=== PATIENT | male | born 1990 | race Two or more races ===

== ENCOUNTER 2017-12-23 16:00 | Inpatient (IN) | payer BC ==
[~2017-12-23] VITALS: Ht 160 cm; Wt 81.6 kg
[2017-12-23] MEDS ORDERED: MORPHINE SULFATE 4 MG/ML VIAL. IV ONE (16:30)
[2017-12-23 16:39] LABS: BASO % 0 % (0-3); EOS % 1 % (0-3); HEMOGLOBIN 15.9 g/dL (13.0-17.5); LYMPH # 2.5 x10^3/uL (1.0-4.8); LYMPH % 39 % (24-48); MEAN CORPUSCULAR HEMOGLOBIN 30 pg (25-35); MEAN CORPUSCULAR HGB CONC 35 g/dL (31-37); MEAN CORPUSCULAR VOLUME 85 fL (79-100); MONO # 0.4 x10^3/uL (0.0-1.1); MONO % 7 % (0-9); NEUT # 3.4 x10^3uL (1.8-7.7); NEUT % 53 % (31-73); PLATELET COUNT 252 x10^3/uL (140-400); RED BLOOD COUNT 5.26 x10^6/uL (4.30-5.70); RED CELL DISTRIBUTION WIDTH 12.1 % (11.5-14.5); WHITE BLOOD COUNT 6.3 x10^3/uL (4.0-11.0)
[2017-12-23 16:53] LABS: CALCIUM 9.3 mg/dL (8.5-10.1); CREATININE 0.9 mg/dL (0.7-1.3); GFR 99.8
[2017-12-23 16:59] LABS: ALBUMIN 4.5 g/dL (3.4-5.0); ALBUMIN/GLOBULIN RATIO 1.5 (1.0-1.7); TOTAL BILIRUBIN 0.9 mg/dL (0.2-1.0); TOTAL PROTEIN 7.6 g/dL (6.4-8.2)
[2017-12-23] MEDS ORDERED: CONTRAST GIVEN. MC PRN (17:30)
[2017-12-23] MEDS ORDERED: IV NORMAL SALINE 1000ML BAG 1,000 ML IV ONE (17:30)
[2017-12-23 17:40] VITALS: BP 119/71
[2017-12-23] MEDS ORDERED: IOHEXOL 240 MG/ML 50ML VIAL. PO ONE (18:00)
[2017-12-23] MEDS ORDERED: IOHEXOL 300 MG/ML 100ML VIAL. IV ONE (18:00)
[2017-12-23 18:19] LABS: BILIRUBIN,URINE NEGATIVE (NEG); CLARITY,URINE CLEAR; COLOR,URINE YELLOW; NITRITE,URINE NEGATIVE (NEG); PH,URINE 6.5; PROTEIN,URINE NEGATIVE (NEG-TRACE); UROBILINOGEN,URINE 0.2 mg/dL (0.2 mg/dL)
--- NOTE | 2017-12-23 18:29 | RAD ---
PQRS Compliance statement: One or more of the following individualized dose reduction techniques were utilized for this examination: 1. Automated exposure control. 2. Adjustment of the mA and/or kV according to patient size. 3. Use of iterative reconstruction technique. Indication:RLQ PAIN TECHNIQUE: CT abdomen and pelvis with IV contrast with multiplanar reformats. COMPARISON: None FINDINGS: Heart is normal in size. No pericardial or pleural effusion. Clear lung bases. Liver, spleen, gallbladder, pancreas, adrenals and kidneys are within normal limits. No enlarged retroperitoneal or pelvic adenopathy. No free pelvic fluid or ascites. Appendix is mildly dilated measuring 8 mm without significant periappendiceal inflammatory changes. No bowel obstruction. No pneumoperitoneum. Urinary bladder within normal limits. The prostate and seminal vesicles show no large mass. 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 No suspicious bony lesion. IMPRESSION: Mildly dilated appendix without significant periappendiceal inflammatory changes. Findings are nonspecific. Clinically correlate for signs and symptoms of appendicitis. Electronically signed by: Fernando Copeland DO (12/23/2017 6:25 PM) [facility]
[2017-12-23 18:30] LABS: BACTERIA,URINE 0 /HPF (0-FEW); WBC,URINE 0 /HPF (0-4)
[2017-12-23] MEDS ORDERED: ONDANSETRON PF 4 MG/2 ML VIAL. IV PRN (19:00)
[2017-12-23] MEDS ORDERED: fentaNYL PF VIAL 100 MCG/2 ML VIAL IV PRN (19:00)
[2017-12-23] MEDS: IV NORMAL SALINE 1000ML BAG 1,000 ML IV SCH (21:13)
--- NOTE | 2017-12-23 22:24 | PHYS DOC ---
Past Medical History Past Medical History: No Pertinent History Past Surgical History: No Surgical History Alcohol Use: None Drug Use: None Adult General Chief Complaint Chief Complaint: ABDOMINAL PAIN HPI HPI Patient is a 27 year old male who presents with right lower quadrant abdominal pain. The patient states that he was seen at an urgent care approximately one week ago for similar symptoms. He was diagnosed with constipation but told follow-up in emergency department if his symptoms did not improve. The patient states that this pain has now localized to his right lower quadrant. He denies vomiting or diarrhea. He states that he's been having normal bowel movements. He states that he has also had intermittent fevers at home. Review of Systems Review of Systems Constitutional: Denies fever or chills [] Respiratory: Denies cough or shortness of breath [] Cardiovascular: No additional information not addressed in HPI [] GI: See history of present illness : Denies dysuria or hematuria [] Musculoskeletal: Denies back pain or joint pain [] Integument: Denies rash or skin lesions [] Neurologic: Denies headache, focal weakness or sensory changes [] Endocrine: Denies polyuria or polydipsia [] All other systems were reviewed and found to be within normal limits, except as documented in this note. Current Medications Current Medications Current Medications Medications (Trade) Dose Ordered Sig/Prema Start Time Stop Time Status Last Admin Dose Admin Info (CONTRAST GIVEN -- Rx MONITORING) 1 each PRN DAILY PRN 12/23/17 17:30 12/25/17 17:29 Iohexol (Omnipaque 240 Mg/ml) 50 ml 1X ONCE 12/23/17 18:00 12/23/17 18:01 DC Iohexol (Omnipaque 300 Mg/ml) 75 ml 1X ONCE 12/23/17 18:00 12/23/17 18:01 DC 12/23/17 18:27 75 ML Morphine Sulfate (Morphine Sulfate) 4 mg 1X ONCE 12/23/17 16:30 12/23/17 16:32 DC 12/23/17 17:43 4 MG Sodium Chloride 1,000 ml @ 1,000 mls/hr 1X ONCE 12/23/17 17:30 12/23/17 18:29 DC 12/23/17 17:43 1,000 MLS/HR Allergies Allergies Allergies Coded Allergies Type Severity Reaction Last Updated Verified No Known Drug Allergies 9/9/18 No Physical Exam Physical Exam Constitutional: Well developed, well nourished, no acute distress, non-toxic appearance. [] Neck: Normal range of motion, no tenderness, supple, no stridor. [] Cardiovascular:Heart rate regular rhythm, no murmur [] Lungs & Thorax: Bilateral breath sounds clear to auscultation [] Abdomen: Bowel sounds normal, firm, RLQ tenderness with guarding noted, heel jar is positive, psoas sign is positive, no masses, no pulsatile masses. [] Skin: Warm, dry, no erythema, no rash. [] Neurologic: Alert and oriented X 3, normal motor function, normal sensory function, no focal deficits noted. [] Psychologic: Affect normal, judgement normal, mood normal. [] Current Patient Data Vital Signs Vital Signs Date Time Temp Pulse Resp B/P (MAP) Pulse Ox O2 Delivery O2 Flow Rate FiO2 12/23/17 17:43 18 12/23/17 17:40 98.4 56 119/71 (87) 94 Room Air 98.4 Lab Values Laboratory Tests Test 12/23/17 16:20 12/23/17 18:00 12/23/17 18:20 White Blood Count 6.3 x10^3/uL (4.0-11.0) Red Blood Count 5.26 x10^6/uL (4.30-5.70) Hemoglobin 15.9 g/dL (13.0-17.5) Hematocrit 45.0 % (39.0-53.0) Mean Corpuscular Volume 85 fL (79-100) Mean Corpuscular Hemoglobin 30 pg (25-35) Mean Corpuscular Hemoglobin Concent 35 g/dL (31-37) Red Cell Distribution Width 12.1 % (11.5-14.5) Platelet Count 252 x10^3/uL (140-400) Neutrophils (%) (Auto) 53 % (31-73) Lymphocytes (%) (Auto) 39 % (24-48) Monocytes (%) (Auto) 7 % (0-9) Eosinophils (%) (Auto) 1 % (0-3) Basophils (%) (Auto) 0 % (0-3) Neutrophils # (Auto) 3.4 x10^3uL (1.8-7.7) Lymphocytes # (Auto) 2.5 x10^3/uL (1.0-4.8) Monocytes # (Auto) 0.4 x10^3/uL (0.0-1.1) Eosinophils # (Auto) 0.0 x10^3/uL (0.0-0.7) Basophils # (Auto) 0.0 x10^3/uL (0.0-0.2) Sodium Level 138 mmol/L (136-145) Potassium Level 4.0 mmol/L (3.5-5.1) Chloride Level 103 mmol/L (98-107) Carbon Dioxide Level 27 mmol/L (21-32) Anion Gap 8 (6-14) Blood Urea Nitrogen 17 mg/dL (8-26) Creatinine 0.9 mg/dL (0.7-1.3) Estimated GFR (Cockcroft-Gault) 99.8 BUN/Creatinine Ratio 19 (6-20) Glucose Level 96 mg/dL (70-99) Calcium Level 9.3 mg/dL (8.5-10.1) Total Bilirubin 0.9 mg/dL (0.2-1.0) Aspartate Amino Transferase (AST) 21 U/L (15-37) Alanine Aminotransferase (ALT) 36 U/L (16-63) Alkaline Phosphatase 116 U/L (46-116) Total Protein 7.6 g/dL (6.4-8.2) Albumin 4.5 g/dL (3.4-5.0) Albumin/Globulin Ratio 1.5 (1.0-1.7) Urine Collection Type Unknown Urine Color Yellow Urine Clarity Clear Urine pH 6.5 Urine Specific [place] 1.010 Urine Protein Negative mg/dL (NEG-TRACE) Urine Glucose (UA) Negative mg/dL (NEG) Urine Ketones (Stick) Negative mg/dL (NEG) Urine Blood Negative (NEG) Urine Nitrite Negative (NEG) Urine Bilirubin Negative (NEG) Urine Urobilinogen Dipstick 0.2 mg/dL (0.2 mg/dL) Urine Leukocyte Esterase Negative (NEG) Urine RBC 1-2 /HPF (0-2) Urine WBC 0 /HPF (0-4) Urine Bacteria 0 /HPF (0-FEW) Urine Mucus Slight /LPF Lactic Acid Level 0.7 mmol/L (0.4-2.0) Laboratory Tests 12/23/17 16:20 Laboratory Tests 12/23/17 16:20 EKG EKG [] Radiology/Procedures Radiology/Procedures [] Course & Med Decision Making Course & Med Decision Making Pertinent Labs and Imaging studies reviewed. (See chart for details) []The patient has been admitted to Dr. Jacobo's service. Dr. Mueller, with surgery , has been consulted in the care of this patient as well. He recommended admission and retesting of the patient's white count in the morning. Dragon Disclaimer Dragon Disclaimer This electronic medical record was generated, in whole or in part, using a voice recognition dictation system. Departure Departure Impression: Primary Impression: Abdominal pain Disposition: ADMITTED INPATIENT Admitting Physician: Xie. Carranza Condition: STABLE Referrals: NO PCP (PCP) ABBEY JANG STONE REPAIRER Dec 23, 2017 22:24
[2017-12-23 23:00] VITALS: BP 105/67
[2017-12-24] VITALS (12 sets, daily range): BP systolic 102–129; BP diastolic 52–98
[2017-12-24 05:49] LABS: BASO % 0 % (0-3); EOS # 0.1 x10^3/uL (0.0-0.7); EOS % 1 % (0-3); HEMATOCRIT 41.2 % (39.0-53.0); HEMOGLOBIN 14.2 g/dL (13.0-17.5); LYMPH # 2.4 x10^3/uL (1.0-4.8); LYMPH % 37 % (24-48); MEAN CORPUSCULAR HEMOGLOBIN 30 pg (25-35); MEAN CORPUSCULAR HGB CONC 35 g/dL (31-37); MEAN CORPUSCULAR VOLUME 87 fL (79-100); MONO # 0.4 x10^3/uL (0.0-1.1); MONO % 7 % (0-9); NEUT # 3.5 x10^3uL (1.8-7.7); NEUT % 54 % (31-73); PLATELET COUNT 239 x10^3/uL (140-400); RED BLOOD COUNT 4.76 x10^6/uL (4.30-5.70); RED CELL DISTRIBUTION WIDTH 12.2 % (11.5-14.5); WHITE BLOOD COUNT 6.4 x10^3/uL (4.0-11.0)
[2017-12-24 06:05] LABS: CALCIUM 8.3 mg/dL (8.5-10.1); CREATININE 0.9 mg/dL (0.7-1.3); GFR 99.8; POTASSIUM 3.6 mmol/L (3.5-5.1)
[2017-12-24] MEDS: IV NORMAL SALINE 1000ML BAG 1,000 ML IV SCH ×2 (06:25→17:30)
[2017-12-24] MEDS ORDERED: IV RINGERS,LACTATED 1000ML 1,000 ML IV SCH (07:57)
[2017-12-24] MEDS ORDERED: MORPHINE SULFATE 2 MG/ML VIAL. IV PRN (08:00)
[2017-12-24] MEDS ORDERED: PROCHLORPERAZINE 10 MG/2 ML VIAL. IV PRN (08:00)
[2017-12-24] MEDS ORDERED: fentaNYL PF VIAL 100 MCG/2 ML VIAL IV PRN ×2 (08:00)
[2017-12-24] MEDS ORDERED: ONDANSETRON PF 4 MG/2 ML VIAL. IV PRN (08:00)
[2017-12-24] MEDS ORDERED: HYDROmorphone 2 MG/ML VIAL IV PRN (08:00)
[2017-12-24] MEDS ORDERED: LIDOCAINE 1% PF 2 ML VIAL. ID PRN (08:00)
--- NOTE | 2017-12-24 08:21 | PDOC2 ---
FELICIA CRUZ PLATE FINISHER 12/24/17 0821: CONSULT Date of Consult Date of Consult DATE: 12/24/17 TIME: 08:15 Reason for Consult Reason for Consult: rlq pain Referring Physician Referring Physician: ER Identification/Chief Complaint Chief Complaint abdominal pain Source Source: Chart review, Patient History of Present Illness Reason for Visit: Used paraprofessional interpreter phone to speak with patient. Reports a few weeks of lower abdominal pain, RLQ worst. Seen last week in urgent care. Stool softeners given, continued to have pain, came to ER. Reports small BM yesterday, no diarrhea. Pain aggravated with movement. Associated nausea Past Medical History Past Medical History no pertinent hx Past Surgical History Past Surgical History: No pertinent history Family History Family History: Other (noncontributory to current illness ) Social History No ALCOHOL: none Drugs: None Current Medications Current Medications Current Medications Morphine Sulfate (Morphine Sulfate) 4 mg 1X ONCE IV Last administered on at 17:43; Start 12/23/17 at 16:30; Stop 12/23/17 at 16:32; Status DC Sodium Chloride 1,000 ml @ 1,000 mls/hr 1X ONCE IV Last administered on at 17:43; Start 12/23/17 at 17:30; Stop 12/23/17 at 18:29; Status DC Iohexol (Omnipaque 240 Mg/ml) 50 ml 1X ONCE PO ; Start 12/23/17 at 18:00; Stop 12/23/17 at 18:01; Status DC Iohexol (Omnipaque 300 Mg/ml) 75 ml 1X ONCE IV Last administered on 12/23/17at 18:27; Start 12/23/17 at 18:00; Stop 12/23/17 at 18:01; Status DC Info (CONTRAST GIVEN -- Rx MONITORING) 1 each PRN DAILY PRN MC SEE COMMENTS; Start 12/23/17 at 17:30; Stop 12/25/17 at 17:29 Ondansetron HCl (Zofran) 4 mg PRN Q8HRS PRN IV NAUSEA/VOMITING; Start 12/23/17 at 19:00; Stop 12/24/17 at 18:59 Fentanyl Citrate (Fentanyl 2ml Vial) 50 mcg PRN Q2HR PRN IV PAIN; Start at 19:00; Stop 12/24/17 at 18:59 Sodium Chloride 1,000 ml @ 100 mls/hr Q10H IV Last administered on 12/24/17at 06:25; Start 12/23/17 at 21:00 Ondansetron HCl (Zofran) 4 mg PRN Q6HRS PRN IV NAUSEA/VOMITING; Start 12/24/17 at 08:00; Stop 12/24/17 at 18:00 Fentanyl Citrate (Fentanyl 2ml Vial) 25 mcg PRN Q5MIN PRN IV MILD PAIN; Start 12/24/17 at 08:00; Stop 12/24/17 at 18:00 Fentanyl Citrate (Fentanyl 2ml Vial) 50 mcg PRN Q5MIN PRN IV MODERATE TO SEVERE PAIN; Start 12/24/17 at 08:00; Stop 12/24/17 at 18:00 Morphine Sulfate (Morphine Sulfate) 1 mg PRN Q10MIN PRN IV SEVERE PAIN; Start 12/24/17 at 08:00; Stop 12/24/17 at 18:00 Ringer's Solution 1,000 ml @ 30 mls/hr Q24H IV ; Start 12/24/17 at 07:57; Stop 12/24/17 at 19:56 Lidocaine HCl (Xylocaine-Mpf 1% 2ml Vial) 2 ml 1X PRN PRN ID IV START; Start at 08:00; Stop 12/24/17 at 18:00 Hydromorphone HCl (Dilaudid) 0.5 mg PRN Q10MIN PRN IV SEV PAIN, Second choice; Start 12/24/17 at 08:00; Stop 12/24/17 at 18:00 Prochlorperazine Edisylate (Compazine) 5 mg PACU PRN PRN IV NAUSEA, MRX1; Start 12/24/17 at 08:00; Stop 12/24/17 at 18:00 Allergies Allergies: Coded Allergies: No Known Drug Allergies (Unverified , 12/23/17) ROS General: No: Chills, Other (fevers) PSYCHOLOGICAL ROS: No: Anxiety, Depression Eyes: No Blurry vision, No Double vision Hematological and Lymphatic: No: Bleeding Problems, Blood Clots Respiratory: No: Cough, SOB with excertion Cardiovascular: No Chest Pain, No Palpitations Gastrointestinal: Yes Other (see hpi) Genitourinary: No Dysuria, No Hematuria Musculoskeletal: No Joint Pain, No Muscle Pain Neurological: No Confusion, No Impaired Coord/balance Skin: No Pruritus, No Rash Physical Exam General: Alert, Oriented X3, Cooperative, No acute distress HEENT: PERRLA, Mucous membr. moist/pink Lungs: Clear to auscultation, Normal air movement Heart: Regular rate, Normal S1, Normal S2, No murmurs Abdomen: Soft, Other (ND, TTP RLQ) Extremities: No clubbing, No cyanosis Skin: No rashes, No breakdown Neuro: Normal gait, Normal speech Psych/Mental Status: Mental status NL, Mood NL MUSCULOSKELETAL: No deformity, No swelling Vitals VITALS Vital Signs Date Time Temp Pulse Resp B/P (MAP) Pulse Ox O2 Delivery O2 Flow Rate FiO2 12/24/17 03:00 98.7 57 18 122/98 (106) 98 Room Air 98.7 Labs Labs Laboratory Tests Test 12/23/17 16:20 12/23/17 18:00 12/23/17 18:20 12/24/17 04:12 White Blood Count 6.3 x10^3/uL (4.0-11.0) 6.4 x10^3/uL (4.0-11.0) Red Blood Count 5.26 x10^6/uL (4.30-5.70) 4.76 x10^6/uL (4.30-5.70) Hemoglobin 15.9 g/dL (13.0-17.5) 14.2 g/dL (13.0-17.5) Hematocrit 45.0 % (39.0-53.0) 41.2 % (39.0-53.0) Mean Corpuscular Volume 85 fL (79-100) 87 fL (79-100) Mean Corpuscular Hemoglobin 30 pg (25-35) 30 pg (25-35) Mean Corpuscular Hemoglobin Concent 35 g/dL (31-37) 35 g/dL (31-37) Red Cell Distribution Width 12.1 % (11.5-14.5) 12.2 % (11.5-14.5) Platelet Count 252 x10^3/uL (140-400) 239 x10^3/uL (140-400) Neutrophils (%) (Auto) 53 % (31-73) 54 % (31-73) Lymphocytes (%) (Auto) 39 % (24-48) 37 % (24-48) Monocytes (%) (Auto) 7 % (0-9) 7 % (0-9) Eosinophils (%) (Auto) 1 % (0-3) 1 % (0-3) Basophils (%) (Auto) 0 % (0-3) 0 % (0-3) Neutrophils # (Auto) 3.4 x10^3uL (1.8-7.7) 3.5 x10^3uL (1.8-7.7) Lymphocytes # (Auto) 2.5 x10^3/uL (1.0-4.8) 2.4 x10^3/uL (1.0-4.8) Monocytes # (Auto) 0.4 x10^3/uL (0.0-1.1) 0.4 x10^3/uL (0.0-1.1) Eosinophils # (Auto) 0.0 x10^3/uL (0.0-0.7) 0.1 x10^3/uL (0.0-0.7) Basophils # (Auto) 0.0 x10^3/uL (0.0-0.2) 0.0 x10^3/uL (0.0-0.2) Sodium Level 138 mmol/L (136-145) 141 mmol/L (136-145) Potassium Level 4.0 mmol/L (3.5-5.1) 3.6 mmol/L (3.5-5.1) Chloride Level 103 mmol/L (98-107) 107 mmol/L (98-107) Carbon Dioxide Level 27 mmol/L (21-32) 26 mmol/L (21-32) Anion Gap 8 (6-14) 8 (6-14) Blood Urea Nitrogen 17 mg/dL (8-26) 14 mg/dL (8-26) Creatinine 0.9 mg/dL (0.7-1.3) 0.9 mg/dL (0.7-1.3) Estimated GFR (Cockcroft-Gault) 99.8 99.8 BUN/Creatinine Ratio 19 (6-20) Glucose Level 96 mg/dL (70-99) 78 mg/dL (70-99) Calcium Level 9.3 mg/dL (8.5-10.1) 8.3 mg/dL (8.5-10.1) Total Bilirubin 0.9 mg/dL (0.2-1.0) Aspartate Amino Transf (AST/SGOT) 21 U/L (15-37) Alanine Aminotransferase (ALT/SGPT) 36 U/L (16-63) Alkaline Phosphatase 116 U/L (46-116) Total Protein 7.6 g/dL (6.4-8.2) Albumin 4.5 g/dL (3.4-5.0) Albumin/Globulin Ratio 1.5 (1.0-1.7) Urine Collection Type Unknown Urine Color Yellow Urine Clarity Clear Urine pH 6.5 Urine Specific [place] 1.010 Urine Protein Negative mg/dL (NEG-TRACE) Urine Glucose (UA) Negative mg/dL (NEG) Urine Ketones (Stick) Negative mg/dL (NEG) Urine Blood Negative (NEG) Urine Nitrite Negative (NEG) Urine Bilirubin Negative (NEG) Urine Urobilinogen Dipstick 0.2 mg/dL (0.2 mg/dL) Urine Leukocyte Esterase Negative (NEG) Urine RBC 1-2 /HPF (0-2) Urine WBC 0 /HPF (0-4) Urine Bacteria 0 /HPF (0-FEW) Urine Mucus Slight /LPF Lactic Acid Level 0.7 mmol/L (0.4-2.0) Laboratory Tests Test 12/23/17 16:20 12/23/17 18:00 12/23/17 18:20 12/24/17 04:12 White Blood Count 6.3 x10^3/uL (4.0-11.0) 6.4 x10^3/uL (4.0-11.0) Red Blood Count 5.26 x10^6/uL (4.30-5.70) 4.76 x10^6/uL (4.30-5.70) Hemoglobin 15.9 g/dL (13.0-17.5) 14.2 g/dL (13.0-17.5) Hematocrit 45.0 % (39.0-53.0) 41.2 % (39.0-53.0) Mean Corpuscular Volume 85 fL (79-100) 87 fL (79-100) Mean Corpuscular Hemoglobin 30 pg (25-35) 30 pg (25-35) Mean Corpuscular Hemoglobin Concent 35 g/dL (31-37) 35 g/dL (31-37) Red Cell Distribution Width 12.1 % (11.5-14.5) 12.2 % (11.5-14.5) Platelet Count 252 x10^3/uL (140-400) 239 x10^3/uL (140-400) Neutrophils (%) (Auto) 53 % (31-73) 54 % (31-73) Lymphocytes (%) (Auto) 39 % (24-48) 37 % (24-48) Monocytes (%) (Auto) 7 % (0-9) 7 % (0-9) Eosinophils (%) (Auto) 1 % (0-3) 1 % (0-3) Basophils (%) (Auto) 0 % (0-3) 0 % (0-3) Neutrophils # (Auto) 3.4 x10^3uL (1.8-7.7) 3.5 x10^3uL (1.8-7.7) Lymphocytes # (Auto) 2.5 x10^3/uL (1.0-4.8) 2.4 x10^3/uL (1.0-4.8) Monocytes # (Auto) 0.4 x10^3/uL (0.0-1.1) 0.4 x10^3/uL (0.0-1.1) Eosinophils # (Auto) 0.0 x10^3/uL (0.0-0.7) 0.1 x10^3/uL (0.0-0.7) Basophils # (Auto) 0.0 x10^3/uL (0.0-0.2) 0.0 x10^3/uL (0.0-0.2) Sodium Level 138 mmol/L (136-145) 141 mmol/L (136-145) Potassium Level 4.0 mmol/L (3.5-5.1) 3.6 mmol/L (3.5-5.1) Chloride Level 103 mmol/L (98-107) 107 mmol/L (98-107) Carbon Dioxide Level 27 mmol/L (21-32) 26 mmol/L (21-32) Anion Gap 8 (6-14) 8 (6-14) Blood Urea Nitrogen 17 mg/dL (8-26) 14 mg/dL (8-26) Creatinine 0.9 mg/dL (0.7-1.3) 0.9 mg/dL (0.7-1.3) Estimated GFR (Cockcroft-Gault) 99.8 99.8 BUN/Creatinine Ratio 19 (6-20) Glucose Level 96 mg/dL (70-99) 78 mg/dL (70-99) Calcium Level 9.3 mg/dL (8.5-10.1) 8.3 mg/dL (8.5-10.1) Total Bilirubin 0.9 mg/dL (0.2-1.0) Aspartate Amino Transf (AST/SGOT) 21 U/L (15-37) Alanine Aminotransferase (ALT/SGPT) 36 U/L (16-63) Alkaline Phosphatase 116 U/L (46-116) Total Protein 7.6 g/dL (6.4-8.2) Albumin 4.5 g/dL (3.4-5.0) Albumin/Globulin Ratio 1.5 (1.0-1.7) Urine Collection Type Unknown Urine Color Yellow Urine Clarity Clear Urine pH 6.5 Urine Specific [place] 1.010 Urine Protein Negative mg/dL (NEG-TRACE) Urine Glucose (UA) Negative mg/dL (NEG) Urine Ketones (Stick) Negative mg/dL (NEG) Urine Blood Negative (NEG) Urine Nitrite Negative (NEG) Urine Bilirubin Negative (NEG) Urine Urobilinogen Dipstick 0.2 mg/dL (0.2 mg/dL) Urine Leukocyte Esterase Negative (NEG) Urine RBC 1-2 /HPF (0-2) Urine WBC 0 /HPF (0-4) Urine Bacteria 0 /HPF (0-FEW) Urine Mucus Slight /LPF Lactic Acid Level 0.7 mmol/L (0.4-2.0) Assessment/Plan Assessment/Plan RLQ, CT with dilated, thickened appendix plan lap appy today JAMAR BELL MD 12/24/17 1119: CONSULT Assessment/Plan Assessment/Plan Pt seen and examined by myself: HPI noted above, PMH/PSH/ROS/SH as above and reviewed; exam: alert, oriented, no distress, no scleral icterus, lungs clear, heart RR and R, abdomen soft, tender with palpation in RLQ, no masses, ext neg for edema or deformity; labs/CT scan reviewed; A/P) 27 year old male with RLQ pain, evaluation equivocal, WBC normal, CT equivocal, some borderline dilation; given persistence of pain and exam would proceed with laparoscopy. The patient understands and would like to proceed. FELICIA CRUZ APRN Dec 24, 2017 08:21 JAMAR BELL MD Dec 24, 2017 11:19
--- NOTE | 2017-12-24 08:41 | PDOC1 ---
History and Physical Date of Admission Date of Admission DATE: 12/24/17 TIME: 08:40 History of Present Illness History of Present Illness Patient is a 27 year old male who presents with right lower quadrant abdominal pain. The patient states that he was seen at an urgent care approximately one week ago for similar symptoms. He was diagnosed with constipation but told follow-up in emergency department if his symptoms did not improve. The patient states that this pain has now localized to his right lower quadrant. He denies vomiting or diarrhea. He states that he's been having normal bowel movements. He states that he has also had intermittent fevers at home. Past Surgical History Past Surgical History: No pertinent history Family History Family History: Other (noncontributory to current illness ) Social History Smoke: No ALCOHOL: none Drugs: None Current Medications Current Medications Current Medications Morphine Sulfate (Morphine Sulfate) 4 mg 1X ONCE IV Last administered on at 17:43; Start 12/23/17 at 16:30; Stop 12/23/17 at 16:32; Status DC Sodium Chloride 1,000 ml @ 1,000 mls/hr 1X ONCE IV Last administered on at 17:43; Start 12/23/17 at 17:30; Stop 12/23/17 at 18:29; Status DC Iohexol (Omnipaque 240 Mg/ml) 50 ml 1X ONCE PO ; Start 12/23/17 at 18:00; Stop 12/23/17 at 18:01; Status DC Iohexol (Omnipaque 300 Mg/ml) 75 ml 1X ONCE IV Last administered on 12/23/17at 18:27; Start 12/23/17 at 18:00; Stop 12/23/17 at 18:01; Status DC Info (CONTRAST GIVEN -- Rx MONITORING) 1 each PRN DAILY PRN MC SEE COMMENTS; Start 12/23/17 at 17:30; Stop 12/25/17 at 17:29 Ondansetron HCl (Zofran) 4 mg PRN Q8HRS PRN IV NAUSEA/VOMITING; Start 12/23/17 at 19:00; Stop 12/24/17 at 18:59 Fentanyl Citrate (Fentanyl 2ml Vial) 50 mcg PRN Q2HR PRN IV PAIN; Start at 19:00; Stop 12/24/17 at 18:59 Sodium Chloride 1,000 ml @ 100 mls/hr Q10H IV Last administered on 12/24/17at 06:25; Start 12/23/17 at 21:00 Ondansetron HCl (Zofran) 4 mg PRN Q6HRS PRN IV NAUSEA/VOMITING; Start 12/24/17 at 08:00; Stop 12/24/17 at 18:00 Fentanyl Citrate (Fentanyl 2ml Vial) 25 mcg PRN Q5MIN PRN IV MILD PAIN; Start 12/24/17 at 08:00; Stop 12/24/17 at 18:00 Fentanyl Citrate (Fentanyl 2ml Vial) 50 mcg PRN Q5MIN PRN IV MODERATE TO SEVERE PAIN; Start 12/24/17 at 08:00; Stop 12/24/17 at 18:00 Morphine Sulfate (Morphine Sulfate) 1 mg PRN Q10MIN PRN IV SEVERE PAIN; Start 12/24/17 at 08:00; Stop 12/24/17 at 18:00 Ringer's Solution 1,000 ml @ 30 mls/hr Q24H IV ; Start 12/24/17 at 07:57; Stop 12/24/17 at 19:56 Lidocaine HCl (Xylocaine-Mpf 1% 2ml Vial) 2 ml 1X PRN PRN ID IV START; Start at 08:00; Stop 12/24/17 at 18:00 Hydromorphone HCl (Dilaudid) 0.5 mg PRN Q10MIN PRN IV SEV PAIN, Second choice; Start 12/24/17 at 08:00; Stop 12/24/17 at 18:00 Prochlorperazine Edisylate (Compazine) 5 mg PACU PRN PRN IV NAUSEA, MRX1; Start 12/24/17 at 08:00; Stop 12/24/17 at 18:00 Allergies Allergies: Coded Allergies: No Known Drug Allergies (Unverified , 12/23/17) Physical Exam General: Alert, Cooperative, mild distress HEENT: EOMI Vitals Vitals Vital Signs Date Time Temp Pulse Resp B/P (MAP) Pulse Ox O2 Delivery O2 Flow Rate FiO2 12/24/17 07:00 98.3 81 16 118/52 (74) 99 Room Air 98.3 Labs Labs Laboratory Tests Test 12/23/17 16:20 12/23/17 18:00 12/23/17 18:20 12/24/17 04:12 White Blood Count 6.3 x10^3/uL (4.0-11.0) 6.4 x10^3/uL (4.0-11.0) Red Blood Count 5.26 x10^6/uL (4.30-5.70) 4.76 x10^6/uL (4.30-5.70) Hemoglobin 15.9 g/dL (13.0-17.5) 14.2 g/dL (13.0-17.5) Hematocrit 45.0 % (39.0-53.0) 41.2 % (39.0-53.0) Mean Corpuscular Volume 85 fL (79-100) 87 fL (79-100) Mean Corpuscular Hemoglobin 30 pg (25-35) 30 pg (25-35) Mean Corpuscular Hemoglobin Concent 35 g/dL (31-37) 35 g/dL (31-37) Red Cell Distribution Width 12.1 % (11.5-14.5) 12.2 % (11.5-14.5) Platelet Count 252 x10^3/uL (140-400) 239 x10^3/uL (140-400) Neutrophils (%) (Auto) 53 % (31-73) 54 % (31-73) Lymphocytes (%) (Auto) 39 % (24-48) 37 % (24-48) Monocytes (%) (Auto) 7 % (0-9) 7 % (0-9) Eosinophils (%) (Auto) 1 % (0-3) 1 % (0-3) Basophils (%) (Auto) 0 % (0-3) 0 % (0-3) Neutrophils # (Auto) 3.4 x10^3uL (1.8-7.7) 3.5 x10^3uL (1.8-7.7) Lymphocytes # (Auto) 2.5 x10^3/uL (1.0-4.8) 2.4 x10^3/uL (1.0-4.8) Monocytes # (Auto) 0.4 x10^3/uL (0.0-1.1) 0.4 x10^3/uL (0.0-1.1) Eosinophils # (Auto) 0.0 x10^3/uL (0.0-0.7) 0.1 x10^3/uL (0.0-0.7) Basophils # (Auto) 0.0 x10^3/uL (0.0-0.2) 0.0 x10^3/uL (0.0-0.2) Sodium Level 138 mmol/L (136-145) 141 mmol/L (136-145) Potassium Level 4.0 mmol/L (3.5-5.1) 3.6 mmol/L (3.5-5.1) Chloride Level 103 mmol/L (98-107) 107 mmol/L (98-107) Carbon Dioxide Level 27 mmol/L (21-32) 26 mmol/L (21-32) Anion Gap 8 (6-14) 8 (6-14) Blood Urea Nitrogen 17 mg/dL (8-26) 14 mg/dL (8-26) Creatinine 0.9 mg/dL (0.7-1.3) 0.9 mg/dL (0.7-1.3) Estimated GFR (Cockcroft-Gault) 99.8 99.8 BUN/Creatinine Ratio 19 (6-20) Glucose Level 96 mg/dL (70-99) 78 mg/dL (70-99) Calcium Level 9.3 mg/dL (8.5-10.1) 8.3 mg/dL (8.5-10.1) Total Bilirubin 0.9 mg/dL (0.2-1.0) Aspartate Amino Transf (AST/SGOT) 21 U/L (15-37) Alanine Aminotransferase (ALT/SGPT) 36 U/L (16-63) Alkaline Phosphatase 116 U/L (46-116) Total Protein 7.6 g/dL (6.4-8.2) Albumin 4.5 g/dL (3.4-5.0) Albumin/Globulin Ratio 1.5 (1.0-1.7) Urine Collection Type Unknown Urine Color Yellow Urine Clarity Clear Urine pH 6.5 Urine Specific [place] 1.010 Urine Protein Negative mg/dL (NEG-TRACE) Urine Glucose (UA) Negative mg/dL (NEG) Urine Ketones (Stick) Negative mg/dL (NEG) Urine Blood Negative (NEG) Urine Nitrite Negative (NEG) Urine Bilirubin Negative (NEG) Urine Urobilinogen Dipstick 0.2 mg/dL (0.2 mg/dL) Urine Leukocyte Esterase Negative (NEG) Urine RBC 1-2 /HPF (0-2) Urine WBC 0 /HPF (0-4) Urine Bacteria 0 /HPF (0-FEW) Urine Mucus Slight /LPF Lactic Acid Level 0.7 mmol/L (0.4-2.0) Laboratory Tests Test 12/23/17 16:20 12/23/17 18:00 12/23/17 18:20 12/24/17 04:12 White Blood Count 6.3 x10^3/uL (4.0-11.0) 6.4 x10^3/uL (4.0-11.0) Red Blood Count 5.26 x10^6/uL (4.30-5.70) 4.76 x10^6/uL (4.30-5.70) Hemoglobin 15.9 g/dL (13.0-17.5) 14.2 g/dL (13.0-17.5) Hematocrit 45.0 % (39.0-53.0) 41.2 % (39.0-53.0) Mean Corpuscular Volume 85 fL (79-100) 87 fL (79-100) Mean Corpuscular Hemoglobin 30 pg (25-35) 30 pg (25-35) Mean Corpuscular Hemoglobin Concent 35 g/dL (31-37) 35 g/dL (31-37) Red Cell Distribution Width 12.1 % (11.5-14.5) 12.2 % (11.5-14.5) Platelet Count 252 x10^3/uL (140-400) 239 x10^3/uL (140-400) Neutrophils (%) (Auto) 53 % (31-73) 54 % (31-73) Lymphocytes (%) (Auto) 39 % (24-48) 37 % (24-48) Monocytes (%) (Auto) 7 % (0-9) 7 % (0-9) Eosinophils (%) (Auto) 1 % (0-3) 1 % (0-3) Basophils (%) (Auto) 0 % (0-3) 0 % (0-3) Neutrophils # (Auto) 3.4 x10^3uL (1.8-7.7) 3.5 x10^3uL (1.8-7.7) Lymphocytes # (Auto) 2.5 x10^3/uL (1.0-4.8) 2.4 x10^3/uL (1.0-4.8) Monocytes # (Auto) 0.4 x10^3/uL (0.0-1.1) 0.4 x10^3/uL (0.0-1.1) Eosinophils # (Auto) 0.0 x10^3/uL (0.0-0.7) 0.1 x10^3/uL (0.0-0.7) Basophils # (Auto) 0.0 x10^3/uL (0.0-0.2) 0.0 x10^3/uL (0.0-0.2) Sodium Level 138 mmol/L (136-145) 141 mmol/L (136-145) Potassium Level 4.0 mmol/L (3.5-5.1) 3.6 mmol/L (3.5-5.1) Chloride Level 103 mmol/L (98-107) 107 mmol/L (98-107) Carbon Dioxide Level 27 mmol/L (21-32) 26 mmol/L (21-32) Anion Gap 8 (6-14) 8 (6-14) Blood Urea Nitrogen 17 mg/dL (8-26) 14 mg/dL (8-26) Creatinine 0.9 mg/dL (0.7-1.3) 0.9 mg/dL (0.7-1.3) Estimated GFR (Cockcroft-Gault) 99.8 99.8 BUN/Creatinine Ratio 19 (6-20) Glucose Level 96 mg/dL (70-99) 78 mg/dL (70-99) Calcium Level 9.3 mg/dL (8.5-10.1) 8.3 mg/dL (8.5-10.1) Total Bilirubin 0.9 mg/dL (0.2-1.0) Aspartate Amino Transf (AST/SGOT) 21 U/L (15-37) Alanine Aminotransferase (ALT/SGPT) 36 U/L (16-63) Alkaline Phosphatase 116 U/L (46-116) Total Protein 7.6 g/dL (6.4-8.2) Albumin 4.5 g/dL (3.4-5.0) Albumin/Globulin Ratio 1.5 (1.0-1.7) Urine Collection Type Unknown Urine Color Yellow Urine Clarity Clear Urine pH 6.5 Urine Specific [place] 1.010 Urine Protein Negative mg/dL (NEG-TRACE) Urine Glucose (UA) Negative mg/dL (NEG) Urine Ketones (Stick) Negative mg/dL (NEG) Urine Blood Negative (NEG) Urine Nitrite Negative (NEG) Urine Bilirubin Negative (NEG) Urine Urobilinogen Dipstick 0.2 mg/dL (0.2 mg/dL) Urine Leukocyte Esterase Negative (NEG) Urine RBC 1-2 /HPF (0-2) Urine WBC 0 /HPF (0-4) Urine Bacteria 0 /HPF (0-FEW) Urine Mucus Slight /LPF Lactic Acid Level 0.7 mmol/L (0.4-2.0) VTE Prophylaxis Ordered VTE Prophylaxis Devices: No VTE Pharmacological Prophylaxi: No Assessment/Plan Assessment/Plan RLQ pain surg planned today scant other med hx MARCIA SIM MD Dec 24, 2017 08:41
[2017-12-24] MEDS ORDERED: BUPIVACAINE-EPI 0.5%-1:200000 50 ML VIAL. ONE (10:24)
[2017-12-24] MEDS ORDERED: PIPERACILLIN/TAZOBACTAM 3.375 GM in IV NORMAL SALINE 50ML 50 ML IV STA (10:59)
[2017-12-24] MEDS ORDERED: ePHEDrine PF IN SALINE 50 MG/5 ML DISP.SYRIN IV ONE (12:02)
[2017-12-24] MEDS ORDERED: MIDAZOLAM HCL/PF 2 MG/2 ML VIAL. ONE (12:21)
[2017-12-24] MEDS ORDERED: KETOROLAC 30 MG/ML INJ FOR OR. INJ ONE (12:22)
[2017-12-24] MEDS ORDERED: NEOSTIGMINE METHYLSULFATE 5 MG/5 ML SYRINGE. ONE (12:22)
[2017-12-24] MEDS ORDERED: DEXAMETHASONE SOD PHOS 20 MG/5 ML VIAL. ONE (12:22)
[2017-12-24] MEDS ORDERED: fentaNYL PF VIAL 100 MCG/2 ML VIAL ONE ×2 (12:22→12:49)
[2017-12-24] MEDS ORDERED: ROCURONIUM 50 MG/5 ML VIAL. ONE (12:22)
[2017-12-24] MEDS ORDERED: GLYCOPYRROLATE 1 MG/5 ML VIAL. ONE (12:22)
[2017-12-24] MEDS ORDERED: ONDANSETRON PF 4 MG/2 ML VIAL. ONE (12:22)
[2017-12-24] MEDS ORDERED: PROPOFOL 20 ML IV ONE (12:22)
--- NOTE | 2017-12-24 12:46 | PDOC4 ---
Operative Note Operative Note Preoperative Diagnosis: Acute Appendicitis Postoperative Diagnosis: ?Acute appendicitis Procedure: Laparoscopic appendectomy Surgeon: Ervin Anesthesia: Gen. EBL: 10 mL Specimen: Appendix to pathology Drains: None Complications: None Indication: The patient is a 27 year old male who reported to the emergency department with abdominal pain. The evaluation was equivocal with some enlargement of the appendix noted on CT scan. Clinically his pain is in the RLQ and his is exam is consistent with appendicitis. The patient was offered surgical treatment with a laparoscopic appendectomy. The risks of surgery were discussed which include bleeding, infection, visceral injury, pain, anesthetic risk, potential need for additional surgery or procedure. The patient understands and would like to proceed. Description: The patient was taken to the operating room and placed supine on the operating table. Gen. anesthesia was performed. The abdomen was prepped with ChloraPrep and draped in a standard surgical manner. A supraumbilical incision was made through which a veress needle was inserted and a pneumoperitoneum was created. A visualized 5 mm trocar was inserted and the laparoscope was introduced. In the left lower quadrant a 5 mm trocar was inserted. In the suprapubic region a 12 mm trocar was inserted. The appendix was identified and showed some mild thickening of the distal portion. There were no clear inflammatory changes. The distal ileum and cecum were evaluated an appeared normal. Further evaluation of the abdominal cavity showed no other gross abnormalities. We proceeded with the appendectomy. The mesoappendix was bluntly from the appendix. The mesoappendix was controlled using several clips and it was divided. The appendix was then amputated off the cecum using an Endo DARSHANA 45 stapling device. The appendix was then placed in an endoscopic bag and extracted at the suprapubic incision site. The fascia there was closed with 0 Vicryl and infiltrated with half percent Marcaine with epinephrine. The RLQ was visualized and the staple line appeared well intact and hemostasis was good. No other abnormalities were identified grossly. The remaining ports were removed and the pneumoperitoneum was relieved. The skin at all incision sites was closed with 4-0 Monocryl. Steri-Strips and dressings were applied. The patient tolerated the procedure well and was sent to the recovery room in stable condition. At the end of the case all counts were correct. JAMAR BELL MD Dec 24, 2017 12:46
[2017-12-24] MEDS ORDERED: oxyCODONE/APAP 5/325 1 TAB TABLET PO PRN (13:00)
[2017-12-24] MEDS: oxyCODONE/APAP 5/325 1 TAB TABLET PO PRN ×2 (17:30→21:28)
[2017-12-25 03:00] VITALS: BP 105/55
[2017-12-25] MEDS: IV NORMAL SALINE 1000ML BAG 1,000 ML IV SCH ×2 (03:00→13:00)
[2017-12-25] MEDS: oxyCODONE/APAP 5/325 1 TAB TABLET PO PRN ×3 (06:11→18:47)
[2017-12-25 07:00] VITALS: BP 91/50
--- NOTE | 2017-12-25 09:23 | PDOC ---
FELICIA CRUZ MANAGER [employer]FORMAT[employer] 12/25/17 0923: SURGICAL PROGRESS NOTE Subjective used phone to speak with patient still RLQ pain, although some improvement no n/v, tolerated diet complaint of pressure, pain with urination Vital Signs Vital Signs Date Time Temp Pulse Resp B/P (MAP) Pulse Ox O2 Delivery O2 Flow Rate FiO2 12/25/17 07:19 Room Air 12/25/17 07:00 97.7 57 18 91/50 (64) 94 97.7 12/24/17 13:18 6 I&O Intake and Output 12/25/17 07:00 Intake Total 2490 ml Output Total 315 ml Balance 2175 ml Intake Oral 940 ml IV Total 1550 ml Output Urine Total 310 ml Estimated Blood Loss 5 ml # Voids 3 General: Alert, Oriented X3, Cooperative, No acute distress Abdomen: Soft, Other (ND, incisional TTP) Labs Laboratory Tests Test 12/23/17 16:20 12/23/17 18:00 12/23/17 18:20 12/24/17 04:12 White Blood Count 6.3 x10^3/uL (4.0-11.0) 6.4 x10^3/uL (4.0-11.0) Red Blood Count 5.26 x10^6/uL (4.30-5.70) 4.76 x10^6/uL (4.30-5.70) Hemoglobin 15.9 g/dL (13.0-17.5) 14.2 g/dL (13.0-17.5) Hematocrit 45.0 % (39.0-53.0) 41.2 % (39.0-53.0) Mean Corpuscular Volume 85 fL (79-100) 87 fL (79-100) Mean Corpuscular Hemoglobin 30 pg (25-35) 30 pg (25-35) Mean Corpuscular Hemoglobin Concent 35 g/dL (31-37) 35 g/dL (31-37) Red Cell Distribution Width 12.1 % (11.5-14.5) 12.2 % (11.5-14.5) Platelet Count 252 x10^3/uL (140-400) 239 x10^3/uL (140-400) Neutrophils (%) (Auto) 53 % (31-73) 54 % (31-73) Lymphocytes (%) (Auto) 39 % (24-48) 37 % (24-48) Monocytes (%) (Auto) 7 % (0-9) 7 % (0-9) Eosinophils (%) (Auto) 1 % (0-3) 1 % (0-3) Basophils (%) (Auto) 0 % (0-3) 0 % (0-3) Neutrophils # (Auto) 3.4 x10^3uL (1.8-7.7) 3.5 x10^3uL (1.8-7.7) Lymphocytes # (Auto) 2.5 x10^3/uL (1.0-4.8) 2.4 x10^3/uL (1.0-4.8) Monocytes # (Auto) 0.4 x10^3/uL (0.0-1.1) 0.4 x10^3/uL (0.0-1.1) Eosinophils # (Auto) 0.0 x10^3/uL (0.0-0.7) 0.1 x10^3/uL (0.0-0.7) Basophils # (Auto) 0.0 x10^3/uL (0.0-0.2) 0.0 x10^3/uL (0.0-0.2) Sodium Level 138 mmol/L (136-145) 141 mmol/L (136-145) Potassium Level 4.0 mmol/L (3.5-5.1) 3.6 mmol/L (3.5-5.1) Chloride Level 103 mmol/L (98-107) 107 mmol/L (98-107) Carbon Dioxide Level 27 mmol/L (21-32) 26 mmol/L (21-32) Anion Gap 8 (6-14) 8 (6-14) Blood Urea Nitrogen 17 mg/dL (8-26) 14 mg/dL (8-26) Creatinine 0.9 mg/dL (0.7-1.3) 0.9 mg/dL (0.7-1.3) Estimated GFR (Cockcroft-Gault) 99.8 99.8 BUN/Creatinine Ratio 19 (6-20) Glucose Level 96 mg/dL (70-99) 78 mg/dL (70-99) Calcium Level 9.3 mg/dL (8.5-10.1) 8.3 mg/dL (8.5-10.1) Total Bilirubin 0.9 mg/dL (0.2-1.0) Aspartate Amino Transf (AST/SGOT) 21 U/L (15-37) Alanine Aminotransferase (ALT/SGPT) 36 U/L (16-63) Alkaline Phosphatase 116 U/L (46-116) Total Protein 7.6 g/dL (6.4-8.2) Albumin 4.5 g/dL (3.4-5.0) Albumin/Globulin Ratio 1.5 (1.0-1.7) Urine Collection Type Unknown Urine Color Yellow Urine Clarity Clear Urine pH 6.5 Urine Specific [place] 1.010 Urine Protein Negative mg/dL (NEG-TRACE) Urine Glucose (UA) Negative mg/dL (NEG) Urine Ketones (Stick) Negative mg/dL (NEG) Urine Blood Negative (NEG) Urine Nitrite Negative (NEG) Urine Bilirubin Negative (NEG) Urine Urobilinogen Dipstick 0.2 mg/dL (0.2 mg/dL) Urine Leukocyte Esterase Negative (NEG) Urine RBC 1-2 /HPF (0-2) Urine WBC 0 /HPF (0-4) Urine Bacteria 0 /HPF (0-FEW) Urine Mucus Slight /LPF Lactic Acid Level 0.7 mmol/L (0.4-2.0) Assessment/Plan s/p lap appy bladder scan, make sure voiding well ok to dc from surgical pov if urinating adequately JAMAR BELL MD 12/25/17 1057: SURGICAL PROGRESS NOTE Assessment/Plan Agree with above, ok to discharge today FELICIA CRUZ APRN Dec 25, 2017 09:23 JAMAR BELL MD Dec 25, 2017 10:57
[2017-12-25] MEDS ORDERED: OXYC1TAB7 PO (09:27)
--- NOTE | 2017-12-25 09:35 | PDOC ---
PROGRESS NOTES Chief Complaint Chief Complaint Assessment/Plan Assessment/Plan RLQ pain Mildly dilated appendix without significant periappendiceal inflammatory changes. on CT surg following scant other med hx History of Present Illness History of Present Illness Operative Note Operative Note Preoperative Diagnosis: Acute Appendicitis Postoperative Diagnosis: ?Acute appendicitis Procedure: Laparoscopic appendectomy Surgeon: Ervin Anesthesia: Gen. EBL: 10 mL Specimen: Appendix to pathology Drains: None Complications: None Vitals Vitals Vital Signs Date Time Temp Pulse Resp B/P (MAP) Pulse Ox O2 Delivery O2 Flow Rate FiO2 12/25/17 07:19 Room Air 12/25/17 07:00 97.7 57 18 91/50 (64) 94 97.7 12/24/17 13:18 6 Physical Exam General: Alert, Oriented X3, Cooperative, No acute distress Heart: Regular rate, Normal S1, Normal S2, No murmurs Lungs: Clear Abdomen: Soft, Other (INCISIONS DRY) Extremities: No clubbing, No cyanosis Skin: No rashes, No breakdown Labs LABS PROCEDURE: CT ABD PELV W/ORAL&IV CONTRAST PQRS Compliance statement: One or more of the following individualized dose reduction techniques were utilized for this examination: 1. Automated exposure control. 2. Adjustment of the mA and/or kV according to patient size. 3. Use of iterative reconstruction technique. Indication:RLQ PAIN TECHNIQUE: CT abdomen and pelvis with IV contrast with multiplanar reformats. COMPARISON: None FINDINGS: Heart is normal in size. No pericardial or pleural effusion. Clear lung bases. Liver, spleen, gallbladder, pancreas, adrenals and kidneys are within normal limits. No enlarged retroperitoneal or pelvic adenopathy. No free pelvic fluid or ascites. Appendix is mildly dilated measuring 8 mm without significant periappendiceal inflammatory changes. No bowel obstruction. No pneumoperitoneum. Urinary bladder within normal limits. The prostate and seminal vesicles show no large mass. 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 No suspicious bony lesion. IMPRESSION: Mildly dilated appendix without significant periappendiceal inflammatory changes. Findings are nonspecific. Clinically correlate for signs and symptoms of appendicitis. Electronically signed by: Fernando Copeland DO (12/23/2017 6:25 PM) [facility] Comment Review of Relevant I have reviewed the following items karthikeyan (where applicable) has been applied. Labs Laboratory Tests Test 12/23/17 16:20 12/23/17 18:00 12/23/17 18:20 12/24/17 04:12 White Blood Count 6.3 x10^3/uL (4.0-11.0) 6.4 x10^3/uL (4.0-11.0) Red Blood Count 5.26 x10^6/uL (4.30-5.70) 4.76 x10^6/uL (4.30-5.70) Hemoglobin 15.9 g/dL (13.0-17.5) 14.2 g/dL (13.0-17.5) Hematocrit 45.0 % (39.0-53.0) 41.2 % (39.0-53.0) Mean Corpuscular Volume 85 fL (79-100) 87 fL (79-100) Mean Corpuscular Hemoglobin 30 pg (25-35) 30 pg (25-35) Mean Corpuscular Hemoglobin Concent 35 g/dL (31-37) 35 g/dL (31-37) Red Cell Distribution Width 12.1 % (11.5-14.5) 12.2 % (11.5-14.5) Platelet Count 252 x10^3/uL (140-400) 239 x10^3/uL (140-400) Neutrophils (%) (Auto) 53 % (31-73) 54 % (31-73) Lymphocytes (%) (Auto) 39 % (24-48) 37 % (24-48) Monocytes (%) (Auto) 7 % (0-9) 7 % (0-9) Eosinophils (%) (Auto) 1 % (0-3) 1 % (0-3) Basophils (%) (Auto) 0 % (0-3) 0 % (0-3) Neutrophils # (Auto) 3.4 x10^3uL (1.8-7.7) 3.5 x10^3uL (1.8-7.7) Lymphocytes # (Auto) 2.5 x10^3/uL (1.0-4.8) 2.4 x10^3/uL (1.0-4.8) Monocytes # (Auto) 0.4 x10^3/uL (0.0-1.1) 0.4 x10^3/uL (0.0-1.1) Eosinophils # (Auto) 0.0 x10^3/uL (0.0-0.7) 0.1 x10^3/uL (0.0-0.7) Basophils # (Auto) 0.0 x10^3/uL (0.0-0.2) 0.0 x10^3/uL (0.0-0.2) Sodium Level 138 mmol/L (136-145) 141 mmol/L (136-145) Potassium Level 4.0 mmol/L (3.5-5.1) 3.6 mmol/L (3.5-5.1) Chloride Level 103 mmol/L (98-107) 107 mmol/L (98-107) Carbon Dioxide Level 27 mmol/L (21-32) 26 mmol/L (21-32) Anion Gap 8 (6-14) 8 (6-14) Blood Urea Nitrogen 17 mg/dL (8-26) 14 mg/dL (8-26) Creatinine 0.9 mg/dL (0.7-1.3) 0.9 mg/dL (0.7-1.3) Estimated GFR (Cockcroft-Gault) 99.8 99.8 BUN/Creatinine Ratio 19 (6-20) Glucose Level 96 mg/dL (70-99) 78 mg/dL (70-99) Calcium Level 9.3 mg/dL (8.5-10.1) 8.3 mg/dL (8.5-10.1) Total Bilirubin 0.9 mg/dL (0.2-1.0) Aspartate Amino Transf (AST/SGOT) 21 U/L (15-37) Alanine Aminotransferase (ALT/SGPT) 36 U/L (16-63) Alkaline Phosphatase 116 U/L (46-116) Total Protein 7.6 g/dL (6.4-8.2) Albumin 4.5 g/dL (3.4-5.0) Albumin/Globulin Ratio 1.5 (1.0-1.7) Urine Collection Type Unknown Urine Color Yellow Urine Clarity Clear Urine pH 6.5 Urine Specific [place] 1.010 Urine Protein Negative mg/dL (NEG-TRACE) Urine Glucose (UA) Negative mg/dL (NEG) Urine Ketones (Stick) Negative mg/dL (NEG) Urine Blood Negative (NEG) Urine Nitrite Negative (NEG) Urine Bilirubin Negative (NEG) Urine Urobilinogen Dipstick 0.2 mg/dL (0.2 mg/dL) Urine Leukocyte Esterase Negative (NEG) Urine RBC 1-2 /HPF (0-2) Urine WBC 0 /HPF (0-4) Urine Bacteria 0 /HPF (0-FEW) Urine Mucus Slight /LPF Lactic Acid Level 0.7 mmol/L (0.4-2.0) Medications Current Medications Morphine Sulfate (Morphine Sulfate) 4 mg 1X ONCE IV Last administered on at 17:43; Start 12/23/17 at 16:30; Stop 12/24/17 at 16:02; Status DC Sodium Chloride 1,000 ml @ 1,000 mls/hr 1X ONCE IV Last administered on at 17:43; Start 12/23/17 at 17:30; Stop 12/24/17 at 16:02; Status DC Iohexol (Omnipaque 240 Mg/ml) 50 ml 1X ONCE PO ; Start 12/23/17 at 18:00; Stop 12/24/17 at 16:02; Status DC Iohexol (Omnipaque 300 Mg/ml) 75 ml 1X ONCE IV Last administered on 12/23/17at 18:27; Start 12/23/17 at 18:00; Stop 12/24/17 at 16:02; Status DC Info (CONTRAST GIVEN -- Rx MONITORING) 1 each PRN DAILY PRN MC SEE COMMENTS; Start 12/23/17 at 17:30; Stop 12/25/17 at 17:29 Ondansetron HCl (Zofran) 4 mg PRN Q8HRS PRN IV NAUSEA/VOMITING; Start 12/23/17 at 19:00; Stop 12/24/17 at 18:59; Status DC Fentanyl Citrate (Fentanyl 2ml Vial) 50 mcg PRN Q2HR PRN IV PAIN; Start at 19:00; Stop 12/24/17 at 18:59; Status DC Sodium Chloride 1,000 ml @ 100 mls/hr Q10H IV Last administered on 12/25/17at 03:00; Start 12/23/17 at 21:00 Ondansetron HCl (Zofran) 4 mg PRN Q6HRS PRN IV NAUSEA/VOMITING; Start 12/24/17 at 08:00; Stop 12/24/17 at 18:04; Status DC Fentanyl Citrate (Fentanyl 2ml Vial) 25 mcg PRN Q5MIN PRN IV MILD PAIN; Start 12/24/17 at 08:00; Stop 12/24/17 at 16:02; Status DC Fentanyl Citrate (Fentanyl 2ml Vial) 50 mcg PRN Q5MIN PRN IV MODERATE TO SEVERE PAIN; Start 12/24/17 at 08:00; Stop 12/24/17 at 16:02; Status DC Morphine Sulfate (Morphine Sulfate) 1 mg PRN Q10MIN PRN IV SEVERE PAIN; Start 12/24/17 at 08:00; Stop 12/24/17 at 16:02; Status DC Ringer's Solution 1,000 ml @ 30 mls/hr Q24H IV ; Start 12/24/17 at 07:57; Stop 12/24/17 at 16:02; Status DC Lidocaine HCl (Xylocaine-Mpf 1% 2ml Vial) 2 ml 1X PRN PRN ID IV START; Start at 08:00; Stop 12/24/17 at 16:02; Status DC Hydromorphone HCl (Dilaudid) 0.5 mg PRN Q10MIN PRN IV SEV PAIN, Second choice; Start 12/24/17 at 08:00; Stop 12/24/17 at 16:02; Status DC Prochlorperazine Edisylate (Compazine) 5 mg PACU PRN PRN IV NAUSEA, MRX1; Start 12/24/17 at 08:00; Stop 12/24/17 at 16:02; Status DC Cefazolin Sodium/ Dextrose 0 ml @ As Directed STK-MED ONCE IV ; Start 12/24/17 at 09:38; Stop 12/24/17 at 16:02; Status DC Piperacillin Sod/ Tazobactam Sod 3.375 gm/Sodium Chloride 50 ml @ 100 mls/hr 1X STAT IV Last administered on 12/24/17at 12:08; Start 12/24/17 at 10:59; Stop 12/24/17 at 16:02; Status DC Bupivacaine HCl/ Epinephrine Bitart (Marcaine-Epi 0.5%-1:[id number]) 50 ml STK-MED ONCE .ROUTE Last administered on 12/24/17at 12:18; Start 12/24/17 at 10:24; Stop 12/24/17 at 16:02; Status DC Ephedrine Sulfate (ePHEDrine PF IN SALINE SYRINGE) 50 mg STK-MED ONCE IV ; Start 12/24/17 at 12:02; Stop 12/24/17 at 16:02; Status DC Midazolam HCl (Versed) 2 mg STK-MED ONCE .ROUTE ; Start 12/24/17 at 12:21; Stop 12/24/17 at 16:02; Status DC Fentanyl Citrate (Fentanyl 2ml Vial) 100 mcg STK-MED ONCE .ROUTE ; Start at 12:22; Stop 12/24/17 at 16:02; Status DC Glycopyrrolate (Robinul) 1 mg STK-MED ONCE .ROUTE ; Start 12/24/17 at 12:22; Stop 12/24/17 at 16:02; Status DC Neostigmine Methylsulfate (Neostigmine Methylsulfate) 5 mg STK-MED ONCE .ROUTE ; Start 12/24/17 at 12:22; Stop 12/24/17 at 16:02; Status DC Rocuronium [place] (Zemuron) 50 mg STK-MED ONCE .ROUTE ; Start 12/24/17 at 12:22 ; Stop 12/24/17 at 12:23; Status DC Propofol 20 ml @ As Directed STK-MED ONCE IV ; Start 12/24/17 at 12:22; Stop 01/31 at 16:02; Status DC Dexamethasone Sodium Phosphate (Decadron) 20 mg STK-MED ONCE .ROUTE ; Start 01/31 at 12:22; Stop 12/24/17 at 16:02; Status DC Ketorolac Tromethamine (Toradol For Or Only) 30 mg STK-MED ONCE INJ ; Start 01/31 at 12:22; Stop 12/24/17 at 16:02; Status DC Ondansetron HCl (Zofran) 4 mg STK-MED ONCE .ROUTE ; Start 12/24/17 at 12:22; Stop 12/24/17 at 16:02; Status DC Oxycodone/ Acetaminophen (Percocet 5/325) 1 tab PRN Q4HRS PRN PO MILD PAIN Last administered on 12/25/17at 06:11; Start 12/24/17 at 13:00 Fentanyl Citrate (Fentanyl 2ml Vial) 100 mcg STK-MED ONCE .ROUTE ; Start at 12:49; Stop 12/24/17 at 16:02; Status DC Oxycodone/ Acetaminophen (Percocet 5/325) 2 tab PRN Q4HRS PRN PO MOD-SEVERE PAIN; Start 12/24/17 at 13:00 Active Scripts Active Oxycodone-Acetaminophen 5-325 (Oxycodone Hcl/Acetaminophen) 1 Each Tablet 1 Tab PO PRN Q4HRS PRN Vitals/I & O Vital Sign - Last 24 Hours 12/24/17 12/24/17 12/24/17 12/24/17 12:48 13:00 13:03 13:18 Temp 98.3 98.3 98.3 98.3 98.3 98.3 Pulse 92 70 67 Resp 20 21 20 B/P (MAP) 221/62 120/67 124/71 Pulse Ox 100 100 100 O2 Delivery Room Air Mask Simple Mask Simple Mask Simple Mask O2 Flow Rate 10 10 6 6 12/24/17 12/24/17 12/24/17 12/24/17 13:33 13:48 14:03 14:18 Temp 98.3 97.8 97.8 97.8 98.3 97.8 97.8 97.8 Pulse 60 64 68 58 Resp 22 20 20 21 B/P (MAP) 124/67 120/66 123/77 116/60 Pulse Ox 96 97 97 96 O2 Delivery Room Air Room Air Room Air Room Air 12/24/17 12/24/17 12/24/17 12/24/17 14:30 14:45 15:00 15:15 Pulse 105 60 55 55 B/P (MAP) 129/71 (90) 116/68 (84) 112/59 (76) 103/62 (76) 12/24/17 12/24/17 12/24/17 12/24/17 15:30 16:00 16:30 17:30 Pulse 55 59 57 Resp 16 B/P (MAP) 106/60 (75) 112/74 (87) 118/69 (85) O2 Delivery Room Air 12/24/17 12/24/17 12/24/17 12/24/17 17:30 18:34 19:00 20:00 Temp 98.1 98.1 Pulse 72 60 Resp 16 16 B/P (MAP) 115/68 (84) 102/58 (73) Pulse Ox 100 O2 Delivery Room Air Room Air 12/24/17 12/24/17 12/25/17 12/25/17 21:28 23:00 03:00 06:11 Temp 98.2 98.6 98.2 98.6 Pulse 62 57 Resp 18 16 B/P (MAP) 115/68 (84) 105/55 (72) Pulse Ox 100 97 O2 Delivery Room Air Room Air Room Air Room Air 12/25/17 12/25/17 07:00 07:19 Temp 97.7 97.7 Pulse 57 Resp 18 B/P (MAP) 91/50 (64) Pulse Ox 94 O2 Delivery Room Air Room Air Intake and Output 12/24/17 12/24/17 12/25/17 15:00 23:00 07:00 Intake Total 1150 ml 400 ml 940 ml Output Total 15 ml 300 ml Balance 1135 ml 100 ml 940 ml DANIELA SALEH MD Dec 25, 2017 09:35
[2017-12-25 11:00] VITALS: BP 101/53
[2017-12-25 15:00] VITALS: BP 94/55
--- NOTE | 2017-12-26 10:12 | PATHOLOGY ---
[facility] Accession Number: [id number] . 01 Material submitted: . APPENDIX . 01 Clinical history: . Appendicitis. . 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 (JPM:rosendo; 12/25/2017) QMS/12/26/2017 . 02 Comment: Although there are acute inflammatory cells focally present within the appendiceal lumen, the appendiceal mucosa appears intact and shows no evidence of ulceration or acute inflammation. There is reactive follicular lymphoid hyperplasia of mucosal-associated lymphoid tissue. There is no acute inflammatory cell infiltrate within the appendiceal fibromuscular wall. (JPM:rosendo; 12/25/2017) . 02 Electronically signed: . Harvey Carter MD, Pathologist NPI- [id number] . 01 Gross description: . Received in formalin labeled "Dread, [place], appendix" is an intact vermiform appendix which measures 5.2 cm in length and 0.9 cm in diameter. The proximal margin is closed with a staple line. There is a 3.0 x 2.0 x 0.8 cm attached portion of mesoappendix. The serosa of the specimen is pink-chpapell and slightly hemorrhagic. Upon sectioning, the luminal diameter ranges from 0.3-0.6 cm, and no perforations or fecaliths are present. Upholstery Covers Inspector sections of the specimen are submitted in cassette A1, with the proximal margin inked black. ([facility]; 12/24/2017) SYC/SYC . 02 Pathologist provided ICD-10: K38.0 . 02 CPT . 746363 Performed at: [address], [place], [place] [id number] MD Binu Johnson MD Phone: [phone] Performed at: [address] [id number] MD Harvey Carter MD Phone: [phone]
== END 2017-12-25 19:15 | disposition home or self-care (01) | DRG 343 ==
LOC: ER 16:00 → 4 NORTH 18:41
PROVIDERS: ADMIT Internal Medicine; ATTEND Internal Medicine
PROC: 0DTJ4ZZ Resection of Appendix, Percutaneous Endoscopic Approach (ICD-10-PCS; principal; 2017-12-24 10:30)
DX: K35.80 Unspecified acute appendicitis (principal); K59.00 Constipation, unspecified
CPT/HCPCS: 36415; 74177; 80048; 80053; 81001; 83605; 85025; 87491; 87591; 88304; 96361; 96374; J0690; J1100; J1885; J2250; J2270; J2405; J2543; J2704; J2710; J3010; J3490; J7030; J7120; Q9967; 99285-25